=== PATIENT | female | born 1995 | race Caucasian/White ===

== ENCOUNTER 2020-10-29 18:00 | Emergency (ER) | payer OTHER ==
[~2020-10-29] VITALS: Ht 160 cm; Wt 54.8 kg
[2020-10-29] MEDS ORDERED: ERYTHROMYCIN OPHTH OINT OD STA (20:46)
[2020-10-29 20:53] VITALS: BP 117/80
== END 2020-10-29 21:01 | disposition home or self-care (01) ==
LOC: M ED 18:00
DX: H10.31 Unspecified acute conjunctivitis, right eye (principal)

== ENCOUNTER 2020-11-24 09:33 | Emergency (ER) | payer BC, OTHER ==
[~2020-11-24] VITALS: Ht 160 cm; Wt 54.6 kg
[2020-11-24 11:08] VITALS: BP 111/58
== END 2020-11-24 12:19 | disposition home or self-care (01) ==
LOC: M ED 09:33
DX: T70.29XA Other effects of high altitude, initial encounter (principal); J06.9 Acute upper respiratory infection, unspecified; F17.290 Nicotine dependence, other tobacco product, uncomplicated; Z98.890 Other specified postprocedural states

== ENCOUNTER 2020-12-01 12:19 | Emergency (ER) | payer BC ==
[~2020-12-01] VITALS: Ht 160 cm; Wt 54.3 kg
[2020-12-01 14:58] VITALS: BP 105/67
== END 2020-12-01 15:19 | disposition home or self-care (01) ==
LOC: M ED 12:19
DX: Z11.52 Encounter for screening for COVID-19 (principal); J06.9 Acute upper respiratory infection, unspecified

== ENCOUNTER 2022-02-22 19:51 | Emergency (ER) | payer BC ==
[~2022-02-22] VITALS: Ht 160 cm; Wt 63.6 kg
[2022-02-22] MEDS ORDERED: LIDOCAINE 1% SDV 5ML VIAL DILUENT ONE (22:10)
[2022-02-22] MEDS ORDERED: DOXYCYCLINE HYCLATE 100MG TABLET PO ONE (22:10)
[2022-02-22] MEDS ORDERED: cefTRIAXone 500MG VIAL (J0696 PER 250MG) IM ONE (22:10)
[2022-02-22] MEDS ORDERED: METR-265 PO (22:25)
[2022-02-22] MEDS ORDERED: MACR100C43 PO (22:25)
[2022-02-22] MEDS ORDERED: metroNIDAZOLE (FLAGYL) 500MG TABLET PO ONE (22:25)
[2022-02-22 22:33] VITALS: BP 131/81
[2022-02-22 23:41] LABS: GC DNA AMPLIFICATION POSITIVE (NEGATIVE)
[2022-02-23] MEDS ORDERED: DOXY-443 PO (02:47)
== END 2022-02-22 22:39 | disposition home or self-care (01) ==
LOC: M ED 19:51
DX: A54.03 Gonococcal cervicitis, unspecified (principal); A56.09 Other chlamydial infection of lower genitourinary tract; N39.0 Urinary tract infection, site not specified; N76.0 Acute vaginitis; F17.290 Nicotine dependence, other tobacco product, uncomplicated
CPT/HCPCS: 36415; 81000; 84702; 87086; 87210; 87661; 87810; 87850; 96372; 99283; J0696

== ENCOUNTER → 2022-05-21 | Outpatient (CLI) | payer BC ==
[~2022-05-21] MED LIST: DOXY-443 PO; MACR100C43 PO; METR-265 PO
[2022-05-21 14:34] LABS: HEPATITIS B SURFACE ANTIGEN NEGATIVE (NEGATIVE)
[2022-05-21 14:47] LABS: HIV 1&2 SCREEN CENTAUR NEGATIVE (NEGATIVE)
[2022-05-21 14:55] LABS: HEPATITIS B CORE ANTIBODY IGM NEGATIVE (NEGATIVE)
[2022-05-24 19:07] LABS: HSV-1 DNA Negative (Negative); HSV-2 DNA Negative (Negative)
== END ==
LOC: M PLALAB 09:47
PROVIDERS: ATTEND Nurse Practitioner Family
DX: Z11.3 Encounter for screening for infections with a predominantly sexual mode of transmission (principal); R10.2 Pelvic and perineal pain; R93.0 Abnormal findings on diagnostic imaging of skull and head, not elsewhere classified; Z12.4 Encounter for screening for malignant neoplasm of cervix; N93.0 Postcoital and contact bleeding
CPT/HCPCS: 36415; 86705; 86780; 86803; 87088; 87186; 87340; 87389; 87529; G0123

== ENCOUNTER → 2022-05-21 | Outpatient (REF) | payer BC | LOC: M PLALAB 09:35 | PROVIDERS: ATTEND Nurse Practitioner Family | DX: R10.2 Pelvic and perineal pain (principal); Z11.3 Encounter for screening for infections with a predominantly sexual mode of transmission; N93.0 Postcoital and contact bleeding; Z53.8 Procedure and treatment not carried out for other reasons ==

== ENCOUNTER → 2022-06-12 | Outpatient (CLI) | payer BC | LOC: M WHC 12:24 | PROVIDERS: ATTEND Nurse Practitioner Family | DX: R10.2 Pelvic and perineal pain (principal) ==

== ENCOUNTER 2022-08-08 11:26 | Emergency (ER) | payer BC ==
[~2022-08-08] VITALS: Ht 160 cm; Wt 61.6 kg
[2022-08-08] MEDS ORDERED: CETI10TA4 PO (14:07)
[2022-08-08] MEDS ORDERED: BENZ200C70 PO (14:07)
[2022-08-08] MEDS ORDERED: NAPR-837 PO (14:07)
[2022-08-08 14:13] VITALS: BP 113/70
== END 2022-08-08 14:18 | disposition home or self-care (01) ==
LOC: M ED 11:26
DX: M94.0 Chondrocostal junction syndrome [Tietze] (principal); R07.89 Other chest pain; R00.1 Bradycardia, unspecified; F17.210 Nicotine dependence, cigarettes, uncomplicated

== ENCOUNTER 2022-09-11 09:18 | Emergency (ER) | payer BC ==
[~2022-09-11] VITALS: Ht 160 cm; Wt 60.2 kg
[~2022-09-11 09:18] MED LIST changes: +BENZ200C70 PO; +CETI10TA4 PO; +NAPR-837 PO
[2022-09-11 10:33] LABS: BASO % 0.8 % (0.0-1.0); EOS # 0.1 10^3/uL (0.0-0.5); EOS % 3.4 % (0.0-3.0); HEMATOCRIT 36.5 % (36.0-47.0); HEMOGLOBIN 12.5 g/dl (12.0-15.5); LYMPH # 1.2 10^3/uL (1.5-5.0); LYMPH % 33.2 % (24.0-44.0); MEAN CORPUSCULAR HEMOGLOBIN 31.7 pg (27.0-33.0); MEAN CORPUSCULAR HGB CONC 34.2 g/dl (32.0-36.5); MEAN CORPUSCULAR VOLUME 92.6 fl (80.0-96.0); MONO # 0.3 10^3/uL (0.0-0.8); MONO % 9.6 % (2.0-8.0); NEUTROPHILS # 1.9 10^3/uL (1.5-8.5); NEUTROPHILS % 52.7 % (36.0-66.0); PLATELET COUNT, AUTOMATED 199 10^3/uL (150-450); RED BLOOD COUNT 3.94 10^6/uL (4.00-5.40); WHITE BLOOD COUNT 3.6 10^3/uL (4.0-10.0)
[2022-09-11 10:55] LABS: LIPASE 37 U/L (12-53)
[2022-09-11 10:58] LABS: ALBUMIN 3.8 G/DL (3.2-5.2); ALKALINE PHOSPHATASE 39 U/L (46-116); ALT/SGPT 22 U/L (7.0-40); AST/SGOT 22 U/L (<34); BILIRUBIN,DIRECT 0.4 MG/DL (<0.4); BLOOD UREA NITROGEN 11 MG/DL (9-23); CALCIUM LEVEL 8.2 MG/DL (8.5-10.1); CARBON DIOXIDE LEVEL 28 MMOL/L (20-31); CHLORIDE LEVEL 109 MMOL/L (98-107); GLOMERULAR FILTRATION RATE > 60.0 (>60); GLUCOSE, FASTING 82 MG/DL (60-100); HCG, SERUM QUALITATIVE NEGATIVE (NEGATIVE); SODIUM LEVEL 143 MMOL/L (136-145); TOTAL PROTEIN 6.4 G/DL (5.7-8.2)
[2022-09-11] MEDS ORDERED: KETOROLAC 30 MG/ML 1ML VIAL IV ONE (11:25)
[2022-09-11] MEDS ORDERED: NS 1,000 ML IV ONE (11:25)
[2022-09-11] MEDS ORDERED: KETO10TAB PO (12:46)
[2022-09-11 12:51] VITALS: BP 108/56
[2022-09-11 14:36] LABS: GC DNA AMPLIFICATION NEGATIVE (NEGATIVE)
== END 2022-09-11 13:02 | disposition home or self-care (01) ==
LOC: M ED 09:18
DX: R10.84 Generalized abdominal pain (principal); Z79.899 Other long term (current) drug therapy
CPT/HCPCS: 74018; 80048; 80076; 81001; 83690; 84703; 85025; 87086; 87661; 87810; 87850; 99284; J1885

== ENCOUNTER → 2022-09-18 | Outpatient (REF) | payer BC ==
[~2022-09-18] MED LIST changes: +KETO10TAB PO
== END ==
LOC: M SFHCWAGY 13:05
PROVIDERS: ATTEND Nurse Practitioner Family
DX: R10.2 Pelvic and perineal pain (principal)

== ENCOUNTER → 2022-10-01 | Outpatient (CLI) | payer BC, MEDICAID, SELFPAY | LOC: M RAD 13:39 | PROVIDERS: ATTEND Nurse Practitioner Family | DX: R10.2 Pelvic and perineal pain (principal) ==

== ENCOUNTER 2022-12-23 17:04 | Emergency (ER) | payer BC, MEDICAID ==
[~2022-12-23] VITALS: Ht 160 cm; Wt 62.7 kg
[2022-12-23] MEDS ORDERED: ONDANSETRON 4MG 2ML VIAL IV ONE (18:00)
[2022-12-23] MEDS ORDERED: KETOROLAC 30 MG/ML 1ML VIAL IV ONE (18:00)
[2022-12-23] MEDS ORDERED: NS 1,000 ML IV ONE ×2 (18:00→18:45)
[2022-12-23 18:03] LABS: BASO % 0.2 % (0.0-1.0); HEMATOCRIT 38.7 % (36.0-47.0); HEMOGLOBIN 13.4 g/dl (12.0-15.5); LYMPH % 8.2 % (24.0-44.0); MEAN CORPUSCULAR HEMOGLOBIN 31.2 pg (27.0-33.0); MEAN CORPUSCULAR HGB CONC 34.6 g/dl (32.0-36.5); MEAN CORPUSCULAR VOLUME 90.2 fl (80.0-96.0); MONO # 1.2 10^3/uL (0.0-0.8); MONO % 9.7 % (2.0-8.0); NEUTROPHILS # 10.3 10^3/uL (1.5-8.5); NEUTROPHILS % 81.3 % (36.0-66.0); PLATELET COUNT, AUTOMATED 166 10^3/uL (150-450); RED BLOOD COUNT 4.29 10^6/uL (4.00-5.40); WHITE BLOOD COUNT 12.6 10^3/uL (4.0-10.0)
[2022-12-23 18:32] LABS: ALBUMIN 3.5 G/DL (3.2-5.2); BILIRUBIN,DIRECT 0.5 MG/DL (<0.4); BILIRUBIN,TOTAL 1.3 MG/DL (0.3-1.2); TOTAL PROTEIN 7.2 G/DL (5.7-8.2)
[2022-12-23 18:38] LABS: RSV AMPLIFICATION NEGATIVE (NEGATIVE)
[2022-12-23] MEDS ORDERED: ISOVUE-370 76% 100ML VIAL As Ordered ONE (18:47)
[2022-12-23 19:22] VITALS: TEMP 99.8
[2022-12-23] MEDS ORDERED: ACETAMINOPHEN 500 MG TAB PO ONE (19:25)
[2022-12-23] MEDS ORDERED: cefTRIAXone SOD 1 GM in D5W MINI-BAG PLUS 50 ML IV ONE (20:00)
[2022-12-23] MEDS ORDERED: SULF1TAB23 PO (21:00)
[2022-12-23 21:15] VITALS: BP 124/67
[2022-12-23 21:19] VITALS: O2SAT 97
== END 2022-12-23 21:26 | disposition home or self-care (01) ==
LOC: M ED 17:04
DX: N10 Acute pyelonephritis (principal); R50.9 Fever, unspecified; Z86.73 Personal history of transient ischemic attack (TIA), and cerebral infarction without residual deficits; Z79.899 Other long term (current) drug therapy
CPT/HCPCS: 36415; 74177; 80047; 80076; 81001; 83605; 83690; 84702; 85025; 87088; 87186; 87631; 93005; 93041; 94760; 96361; 96365; 96375; 99285; J0696; J1885; J2405; Q9967

== ENCOUNTER → 2023-01-17 | Outpatient (CLI) | payer BC, MEDICAID ==
[~2023-01-17] MED LIST changes: +SULF1TAB23 PO
[2023-01-17 12:41] LABS: GC DNA AMPLIFICATION NEGATIVE (NEGATIVE)
[2023-01-17 16:16] LABS: HIV 1&2 SCREEN NEGATIVE (NEGATIVE)
[2023-01-17 16:24] LABS: HEPATITIS B CORE ANTIBODY IGM NEGATIVE (NEGATIVE); HEPATITIS C VIRUS ABY INDEX 0.06 INDEX (<0.8)
== END ==
LOC: M PLALAB 08:48
PROVIDERS: ATTEND Nurse Practitioner Family
DX: Z11.3 Encounter for screening for infections with a predominantly sexual mode of transmission (principal); R35.0 Frequency of micturition

== ENCOUNTER 2023-04-16 11:51 | Emergency (ER) | payer MEDICAID, OTHER ==
[~2023-04-16] VITALS: Ht 160 cm; Wt 58.4 kg
[2023-04-16] MEDS ORDERED: NAPR220C14 PO (11:58)
[2023-04-16] MEDS ORDERED: KETOROLAC 60MG 2ML VIAL IM ONE (13:55)
[2023-04-16] MEDS ORDERED: HYDR-3713 PO (14:07)
[2023-04-16 14:16] VITALS: BP 110/65; TEMP 98; O2SAT 100
== END 2023-04-16 14:21 | disposition home or self-care (01) ==
LOC: M ED 11:51
DX: K03.81 Cracked tooth (principal); K08.89 Other specified disorders of teeth and supporting structures
CPT/HCPCS: 96372; 99283; J1885

== ENCOUNTER 2023-05-08 21:11 | Observation (INO) | payer OTHER ==
[~2023-05-08] VITALS: Ht 160 cm; Wt 57.8 kg
[~2023-05-08 21:11] MED LIST changes: +HYDR-3713 PO; +NAPR220C14 PO
[2023-05-08] MEDS ORDERED: PERI12LIQ PO (21:15)
[2023-05-08] MEDS ORDERED: ACETAMINOPHEN 325 MG TAB PO ONE (21:35)
[2023-05-08] MEDS ORDERED: NS 1,000 ML IV ONE (21:35)
[2023-05-08] MEDS ORDERED: ONDANSETRON 4MG 2ML VIAL IV ONE (21:35)
[2023-05-08 21:58] LABS: BASO % 0.3 % (0.0-1.0); EOS % 0.1 % (0.0-3.0); HEMATOCRIT 36.9 % (36.0-47.0); LYMPH # 0.9 10^3/uL (1.5-5.0); LYMPH % 8.1 % (24.0-44.0); MEAN CORPUSCULAR HEMOGLOBIN 32.2 pg (27.0-33.0); MEAN CORPUSCULAR HGB CONC 35.2 g/dl (32.0-36.5); MEAN CORPUSCULAR VOLUME 91.3 fl (80.0-96.0); MONO # 0.5 10^3/uL (0.0-0.8); MONO % 4.3 % (2.0-8.0); NEUTROPHILS # 9.6 10^3/uL (1.5-8.5); NEUTROPHILS % 86.7 % (36.0-66.0); PLATELET COUNT, AUTOMATED 223 10^3/uL (150-450); RED BLOOD COUNT 4.04 10^6/uL (4.00-5.40); WHITE BLOOD COUNT 11.1 10^3/uL (4.0-10.0)
[2023-05-08 22:23] LABS: HCG, SERUM QUALITATIVE NEGATIVE (NEGATIVE)
[2023-05-08 22:34] LABS: ALBUMIN 3.8 G/DL (3.2-5.2); ALKALINE PHOSPHATASE 49 U/L (46-116); ALT/SGPT 49 U/L (7.0-40); AST/SGOT 44 U/L (<34); BILIRUBIN,DIRECT 0.6 MG/DL (<0.4); BILIRUBIN,TOTAL 1.3 MG/DL (0.3-1.2); BLOOD UREA NITROGEN 15 MG/DL (9-23); CALCIUM LEVEL 8.2 MG/DL (8.5-10.1); CARBON DIOXIDE LEVEL 25 MMOL/L (20-31); CHLORIDE LEVEL 109 MMOL/L (98-107); CREATININE FOR GFR 0.72 MG/DL (0.55-1.30); GLOMERULAR FILTRATION RATE > 60.0 (>60); GLUCOSE, FASTING 108 MG/DL (60-100); POTASSIUM SERUM 3.7 MMOL/L (3.5-5.1); SODIUM LEVEL 139 MMOL/L (136-145); TOTAL PROTEIN 7.1 G/DL (5.7-8.2)
[2023-05-08 22:53] LABS: APPEARANCE, URINE CLEAR (CLEAR); BACTERIA, URINE AUTO NEGATIVE (NEGATIVE); BILIRUBIN, URINE AUTO NEGATIVE (NEGATIVE); BLOOD, URINE BLOOD NEGATIVE (NEGATIVE); COLOR, URINE YELLOW (YELLOW); GLUCOSE, URINE (UA) AUTO NEGATIVE (NEGATIVE); KETONE, URINE AUTO NEGATIVE (NEGATIVE); LEUKOCYTE ESTERASE, URINE AUTO NEGATIVE (NEGATIVE); MUCUS, URINE SMALL (NEGATIVE); NITRITE, URINE AUTO NEGATIVE (NEGATIVE); PROTEIN, URINE AUTO NEGATIVE (NEGATIVE); RBC, URINE AUTO 0 /HPF (0-3); SPECIFIC GRAVITY URINE AUTO 1.006 (1.002-1.035); SQUAMOUS EPITHELIAL CELL UR AU 1 /HPF (0-6); WBC, URINE AUTO 1 /HPF (0-3)
[2023-05-08] MEDS ORDERED: ISOVUE-370 76% 100ML VIAL As Ordered ONE (23:10)
[2023-05-09] VITALS (10 sets, daily range): BP systolic 90–106; BP diastolic 48–62; TEMP 97.2–97.9; O2SAT 95–99
[2023-05-09] MEDS ORDERED: PIPERACILLIN/TAZOBACTAM SOD 3.375 GM in D5W MINI-BAG PLUS 50 ML IV ONE ×2
[2023-05-09] MEDS ORDERED: ALEV220T22 PO (00:35)
[2023-05-09] MEDS ORDERED: HOME MED LIST COMPLETE! XX SCH (00:40)
[2023-05-09] MEDS ORDERED: MORPHINE 4 MG/ML 1ML VIAL IV PRN (00:45)
[2023-05-09] MEDS ORDERED: PERCOCET 5MG/325MG TAB PO PRN (00:45)
[2023-05-09] MEDS ORDERED: ONDANSETRON 4MG 2ML VIAL IV PRN ×2 (00:45→16:30)
[2023-05-09] MEDS: LR 1,000 ML IV SCH ×4 (01:36→17:28)
[2023-05-09] MEDS: PERCOCET 5MG/325MG TAB PO PRN ×2 (04:50→17:55)
[2023-05-09] MEDS: PIPERACILLIN/TAZOBACTAM SOD 3.375 GM in D5W MINI-BAG PLUS 50 ML IV SCH ×2 (05:53→11:49)
[2023-05-09] MEDS ORDERED: LIDOCAINE 2% 100MG/5ML SDV (FOR ANES.) As Ordered ONE (13:09)
[2023-05-09] MEDS ORDERED: propofoL 200 MG/20 ML VIAL As Ordered ONE ×2 (13:09→16:15)
[2023-05-09] MEDS ORDERED: SEVOFLURANE INHAL SOLN 250 ML BTL As Ordered ONE (13:09)
[2023-05-09] MEDS ORDERED: ONDANSETRON 4MG 2ML VIAL As Ordered ONE (13:09)
[2023-05-09] MEDS ORDERED: ROCURONIUM BROMIDE 50MG/5ML VIAL As Ordered ONE ×2 (13:09→16:16)
[2023-05-09] MEDS ORDERED: fentaNYL 250 MCG/5 ML INJECTION As Ordered ONE (13:10)
[2023-05-09] MEDS ORDERED: MIDAZOLAM INJ 2MG/2ML VIAL As Ordered ONE (13:10)
[2023-05-09] MEDS ORDERED: KETOROLAC 60MG 2ML VIAL As Ordered ONE (13:11)
[2023-05-09] MEDS ORDERED: SUGAMMADEX SODIUM 500 MG/5 ML VIAL (BRIDION) As Ordered ONE (13:21)
[2023-05-09] MEDS ORDERED: LIDOCAINE 1% SDV 30ML VIAL As Ordered ONE (15:04)
[2023-05-09] MEDS ORDERED: oxyCODONE 5MG TAB PO PRN (16:30)
[2023-05-09] MEDS ORDERED: HYDROMORPHONE HCL 0.5 MG/ 0.5 ML SYRINGE IV PRN (16:30)
[2023-05-09] MEDS ORDERED: fentaNYL 100 MCG/2 ML INJECTION IV PRN (16:30)
[2023-05-09] MEDS ORDERED: LR 1,000 ML IV SCH (16:30)
[2023-05-09] MEDS ORDERED: PERCOCET PO (16:56)
[2023-05-10 02:00] VITALS: BP 102/57; TEMP 97.5; O2SAT 97
[2023-05-10 05:49] VITALS: BP 95/60; TEMP 97.5; O2SAT 96
== END 2023-05-10 09:10 | disposition home or self-care (01) ==
LOC: M ED 21:11 → M SDC 05-09 00:43 → M MSPAV 05-09 00:44
PROVIDERS: ADMIT Surgery; ATTEND Surgery
DX: K35.80 Unspecified acute appendicitis (principal); F17.200 Nicotine dependence, unspecified, uncomplicated
CPT/HCPCS: 44970; 71045; 74177; 80048; 80076; 81001; 83605; 84703; 85025; 87040; 87086; 87486; 87581; 87633; 87798; 88304; 93041; 94760; 96361; 96365; 96366; 96375; 99285; J0665; J1100; J1885; J2250; J2405; J2543; J3010; Q9967

== ENCOUNTER → 2023-05-16 | Outpatient (REF) | payer OTHER, BC, MEDICAID ==
[~2023-05-16] MED LIST changes: +ACET32TAB PO; +ALEV220T22 PO; +CRAN400C PO; +PERCOCET PO; +PERI12LIQ PO
[2023-05-16 19:46] LABS: Trichomonas vaginalis (AMP) NOT DETECTED (NEGATIVE)
[2023-05-16 20:09] LABS: GC DNA AMPLIFICATION NEGATIVE (NEGATIVE)
== END ==
LOC: M SFHCWAGY 17:21
PROVIDERS: ATTEND Nurse Practitioner Family
DX: Z11.3 Encounter for screening for infections with a predominantly sexual mode of transmission (principal)

== ENCOUNTER 2023-07-30 09:57 | Emergency (ER) | payer BC, MEDICAID, OTHER ==
[~2023-07-30] VITALS: Ht 160 cm; Wt 57.2 kg
[~2023-07-30 09:57] MED LIST changes: -CRAN400C PO
[2023-07-30] MEDS ORDERED: CRAN400C PO (10:24)
[2023-07-30 10:49] LABS: BASO % 0.6 % (0.0-1.0); EOS % 0.7 % (0.0-3.0); HEMATOCRIT 41.3 % (36.0-47.0); HEMOGLOBIN 13.9 g/dl (12.0-15.5); LYMPH # 1.5 10^3/uL (1.5-5.0); LYMPH % 27.2 % (24.0-44.0); MEAN CORPUSCULAR HEMOGLOBIN 31.6 pg (27.0-33.0); MEAN CORPUSCULAR HGB CONC 33.7 g/dl (32.0-36.5); MEAN CORPUSCULAR VOLUME 93.9 fl (80.0-96.0); MONO # 0.4 10^3/uL (0.0-0.8); MONO % 7.2 % (2.0-8.0); NEUTROPHILS # 3.5 10^3/uL (1.5-8.5); NEUTROPHILS % 64.1 % (36.0-66.0); PLATELET COUNT, AUTOMATED 199 10^3/uL (150-450); WHITE BLOOD COUNT 5.4 10^3/uL (4.0-10.0)
[2023-07-30 11:17] LABS: LIPASE 36 U/L (12-53)
[2023-07-30 11:18] LABS: HCG, SERUM QUALITATIVE NEGATIVE (NEGATIVE)
[2023-07-30 11:19] LABS: ALBUMIN 3.6 G/DL (3.2-5.2); ALKALINE PHOSPHATASE 41 U/L (46-116); ALT/SGPT 24 U/L (7.0-40); AST/SGOT 12 U/L (<34); BILIRUBIN,DIRECT 0.5 MG/DL (<0.4); BILIRUBIN,TOTAL 1.3 MG/DL (0.3-1.2); BLOOD UREA NITROGEN 11 MG/DL (9-23); CALCIUM LEVEL 8.6 MG/DL (8.5-10.1); CARBON DIOXIDE LEVEL 28 MMOL/L (20-31); CHLORIDE LEVEL 108 MMOL/L (98-107); CREATININE FOR GFR 0.72 MG/DL (0.55-1.30); GLOMERULAR FILTRATION RATE > 60.0 (>60); GLUCOSE, FASTING 98 MG/DL (60-100); SODIUM LEVEL 141 MMOL/L (136-145); TOTAL PROTEIN 7.1 G/DL (5.7-8.2)
[2023-07-30] MEDS: IBUPROFEN 600MG TAB PO ONE (11:50)
[2023-07-30 13:36] VITALS: BP 93/59; TEMP 98.3; O2SAT 98
== END 2023-07-30 13:35 | disposition home or self-care (01) ==
LOC: M ED 09:57
DX: R10.11 Right upper quadrant pain (principal); Z87.448 Personal history of other diseases of urinary system; F17.290 Nicotine dependence, other tobacco product, uncomplicated

== ENCOUNTER → 2023-10-08 | Outpatient (REF) | payer BC, MEDICAID ==
[~2023-10-08] MED LIST changes: +CRANBERRY400 MG PO; +DOXY-323 PO; -DOXY-443 PO
== END ==
LOC: M SFHCWAGY 14:58
PROVIDERS: ATTEND Nurse Practitioner Family
DX: N73.9 Female pelvic inflammatory disease, unspecified (principal)

== ENCOUNTER → 2023-10-30 | Outpatient (REF) | payer BC, MEDICAID ==
[2023-10-30 20:39] LABS: Trichomonas vaginalis (AMP) NOT DETECTED (NEGATIVE)
[2023-10-30 21:02] LABS: GC DNA AMPLIFICATION NEGATIVE (NEGATIVE)
== END ==
LOC: M SFHCWAGY 16:53
PROVIDERS: ATTEND Nurse Practitioner Family
DX: Z11.3 Encounter for screening for infections with a predominantly sexual mode of transmission (principal)

== ENCOUNTER → 2024-01-06 | Outpatient (CLI) | payer BC | LOC: M RAD 11:18 | PROVIDERS: ATTEND Physician Assistant Medical | DX: M79.641 Pain in right hand (principal) ==

== ENCOUNTER → 2024-01-14 | Outpatient (CLI) | payer BC ==
[~2024-01-14] MED LIST changes: -DOXY-323 PO; +DOXY-441 PO
== END ==
LOC: M RAD 10:42
PROVIDERS: ATTEND Physician Assistant Medical
DX: M79.641 Pain in right hand (principal)

== ENCOUNTER 2024-02-27 08:45 | Emergency (ER) | payer MEDICAID ==
[~2024-02-27] VITALS: Ht 160 cm; Wt 61.1 kg
[2024-02-27] MEDS ORDERED: LO LTAB (08:55)
[2024-02-27 09:40] LABS: BASO % 0.8 % (0.0-1.0); EOS # 0.1 10^3/uL (0.0-0.5); EOS % 1.7 % (0.0-3.0); HEMATOCRIT 43.9 % (36.0-47.0); HEMOGLOBIN 15.2 g/dl (12.0-15.5); LYMPH # 1.7 10^3/uL (1.5-5.0); LYMPH % 48.2 % (24.0-44.0); MEAN CORPUSCULAR HEMOGLOBIN 32.5 pg (27.0-33.0); MEAN CORPUSCULAR HGB CONC 34.6 g/dl (32.0-36.5); MONO # 0.3 10^3/uL (0.0-0.8); MONO % 7.9 % (2.0-8.0); NEUTROPHILS # 1.5 10^3/uL (1.5-8.5); NEUTROPHILS % 41.1 % (36.0-66.0); PLATELET COUNT, AUTOMATED 253 10^3/uL (150-450); RED BLOOD COUNT 4.67 10^6/uL (4.00-5.40); WHITE BLOOD COUNT 3.5 10^3/uL (4.0-10.0)
[2024-02-27 09:45] LABS: APPEARANCE, URINE HAZY (CLEAR); BACTERIA, URINE AUTO NEGATIVE (NEGATIVE); BILIRUBIN, URINE AUTO NEGATIVE (NEGATIVE); BLOOD, URINE BLOOD NEGATIVE (NEGATIVE); COLOR, URINE YELLOW (YELLOW); GLUCOSE, URINE (UA) AUTO NEGATIVE (NEGATIVE); KETONE, URINE AUTO NEGATIVE (NEGATIVE); LEUKOCYTE ESTERASE, URINE AUTO NEGATIVE (NEGATIVE); MUCUS, URINE SMALL (NEGATIVE); NITRITE, URINE AUTO NEGATIVE (NEGATIVE); PROTEIN, URINE AUTO NEGATIVE (NEGATIVE); RBC, URINE AUTO 0 /HPF (0-3); SPECIFIC GRAVITY URINE AUTO 1.017 (1.002-1.035); SQUAMOUS EPITHELIAL CELL UR AU 2 /HPF (0-6); UROBILINOGEN, URINE AUTO 0.2 mg/dL (0.0-2.0); WBC, URINE AUTO 1 /HPF (0-3)
[2024-02-27 10:01] LABS: LIPASE 50 U/L (12-53)
[2024-02-27 10:03] LABS: ALBUMIN 3.6 G/DL (3.2-5.2); ALKALINE PHOSPHATASE 38 U/L (35-104); ALT/SGPT 17 U/L (7.0-40); AST/SGOT 12 U/L (<34); BILIRUBIN,DIRECT 0.3 MG/DL (<0.4); BILIRUBIN,TOTAL 0.8 MG/DL (0.3-1.2); TOTAL PROTEIN 7.4 G/DL (5.7-8.2)
[2024-02-27 10:27] LABS: URINE PREG TEST NEGATIVE (NEGATIVE)
[2024-02-27 12:10] LABS: BLOOD UREA NITROGEN 14 MG/DL (9-23); CALCIUM LEVEL 9.3 MG/DL (8.5-10.1); CARBON DIOXIDE LEVEL 26 MMOL/L (20-31); CHLORIDE LEVEL 109 MMOL/L (98-107); CREATININE FOR GFR 0.91 MG/DL (0.55-1.30); GLOMERULAR FILTRATION RATE > 60.0 (>60); GLUCOSE, FASTING 86 MG/DL (60-100); SODIUM LEVEL 142 MMOL/L (136-145)
[2024-02-27] MEDS ORDERED: DICY20TA20 PO (14:04)
[2024-02-27] MEDS ORDERED: ONDA-282 PO (14:04)
[2024-02-27 14:15] VITALS: BP 115/65; TEMP 98.1; O2SAT 98
== END 2024-02-27 14:17 | disposition home or self-care (01) ==
LOC: M ED 08:45
DX: R10.32 Left lower quadrant pain (principal); R10.2 Pelvic and perineal pain; Z79.899 Other long term (current) drug therapy

== ENCOUNTER → 2024-04-02 | Outpatient (CLI) | payer MEDICAID, OTHER ==
[~2024-04-02] MED LIST changes: +DICY20TA20 PO; +LO LTAB; +ONDA-282 PO
[2024-04-02 16:46] LABS: Trichomonas vaginalis (AMP) NOT DETECTED (NEGATIVE)
[2024-04-02 17:09] LABS: GC DNA AMPLIFICATION NEGATIVE (NEGATIVE)
== END ==
LOC: M PLALAB 12:43
PROVIDERS: ATTEND Nurse Practitioner Family
DX: R10.2 Pelvic and perineal pain (principal)

== ENCOUNTER → 2024-07-02 | Outpatient (REF) | payer OTHER, MEDICAID ==
[2024-07-03 12:47] LABS: Trichomonas vaginalis (AMP) NOT DETECTED (NEGATIVE)
[2024-07-03 13:11] LABS: GC DNA AMPLIFICATION NEGATIVE (NEGATIVE)
== END ==
LOC: M SFHCWAGY 09:47
PROVIDERS: ATTEND Nurse Practitioner Family
DX: Z11.3 Encounter for screening for infections with a predominantly sexual mode of transmission (principal)

== ENCOUNTER 2024-07-04 17:43 | Emergency (ER) | payer OTHER, MEDICAID ==
[~2024-07-04] VITALS: Ht 160 cm; Wt 66.3 kg
[2024-07-04 18:49] LABS: BASO % 0.3 % (0.0-1.0); EOS % 0.4 % (0.0-3.0); HEMATOCRIT 45.6 % (36.0-47.0); HEMOGLOBIN 15.6 g/dl (12.0-15.5); LYMPH # 1.6 10^3/uL (1.5-5.0); LYMPH % 14.1 % (24.0-44.0); MEAN CORPUSCULAR HEMOGLOBIN 31.6 pg (27.0-33.0); MEAN CORPUSCULAR HGB CONC 34.2 g/dl (32.0-36.5); MEAN CORPUSCULAR VOLUME 92.3 fl (80.0-96.0); MONO # 0.5 10^3/uL (0.0-0.8); MONO % 4.2 % (2.0-8.0); NEUTROPHILS # 9.2 10^3/uL (1.5-8.5); NEUTROPHILS % 80.6 % (36.0-66.0); PLATELET COUNT, AUTOMATED 258 10^3/uL (150-450); RED BLOOD COUNT 4.94 10^6/uL (4.00-5.40); WHITE BLOOD COUNT 11.4 10^3/uL (4.0-10.0)
[2024-07-04 19:15] LABS: LIPASE 30 U/L (12-53)
[2024-07-04 19:17] LABS: ALBUMIN 3.9 G/DL (3.2-5.2); ALKALINE PHOSPHATASE 56 U/L (35-104); ALT/SGPT 58 U/L (7.0-40); AST/SGOT 27 U/L (<34); BILIRUBIN,DIRECT 0.4 MG/DL (<0.4); BILIRUBIN,TOTAL 1.5 MG/DL (0.3-1.2); BLOOD UREA NITROGEN 12 MG/DL (9-23); CALCIUM LEVEL 9.4 MG/DL (8.5-10.1); CARBON DIOXIDE LEVEL 30 MMOL/L (20-31); CHLORIDE LEVEL 106 MMOL/L (98-107); CREATININE FOR GFR 0.79 MG/DL (0.55-1.30); GLOMERULAR FILTRATION RATE > 60.0 (>60); GLUCOSE, FASTING 87 MG/DL (60-100); POTASSIUM SERUM 3.9 MMOL/L (3.5-5.1); SODIUM LEVEL 143 MMOL/L (136-145); TOTAL PROTEIN 7.6 G/DL (5.7-8.2)
[2024-07-04 19:20] LABS: HCG, SERUM QUALITATIVE NEGATIVE (NEGATIVE)
[2024-07-04 19:25] LABS: KETONE, URINE AUTO RFX NEGATIVE (NEGATIVE); LEUKOCYTE ESTERASE UR AUTO RFX NEGATIVE (NEGATIVE); MUCUS, URINE RFX SMALL (NEGATIVE); NITRITE, URINE AUTO RFX NEGATIVE (NEGATIVE); RBC, URINE AUTO RFX 0 /HPF (0-3); SQUAM EPITHELIAL CELL UR AURFX 0 /HPF (0-6); WBC, URINE AUTO RFX 2 /HPF (0-3)
[2024-07-04] MEDS: NS (Normal Saline) 0.9% 1,000 ML IV ONE (23:25)
[2024-07-04] MEDS: KETOROLAC 30 MG/ML 1ML VIAL IV ONE (23:25)
[2024-07-04] MEDS ORDERED: ISOVUE-370 76% 100ML VIAL As Ordered ONE (23:30)
[2024-07-05 02:45] LABS: Trichomonas vaginalis (AMP) NOT DETECTED (NEGATIVE)
[2024-07-05] MEDS: ACETAMINOPHEN *IV* 1,000 MG in IV 1 EA IV ONE (03:03)
[2024-07-05 03:09] LABS: GC DNA AMPLIFICATION NEGATIVE (NEGATIVE)
[2024-07-05] MEDS ORDERED: ONDA-282 PO (05:01)
[2024-07-05] MEDS ORDERED: IBUP-1022 PO (05:01)
[2024-07-05 05:34] VITALS: BP 101/60; TEMP 97.3; O2SAT 98
== END 2024-07-05 05:37 | disposition home or self-care (01) ==
LOC: M ED 17:43
DX: N83.292 Other ovarian cyst, left side (principal); F17.290 Nicotine dependence, other tobacco product, uncomplicated; F10.10 Alcohol abuse, uncomplicated; Z79.1 Long term (current) use of non-steroidal anti-inflammatories (NSAID); Z79.899 Other long term (current) drug therapy
CPT/HCPCS: 36415; 74177; 76856; 80048; 80076; 81001; 83690; 84703; 85025; 87661; 87810; 87850; 93976; 96374; 96375; 99284; J0131; J1885; Q9967

== ENCOUNTER 2024-08-04 11:18 | Emergency (ER) | payer OTHER ==
[~2024-08-04] VITALS: Ht 160 cm; Wt 66.8 kg
[~2024-08-04 11:18] MED LIST changes: +IBUP-1022 PO
[2024-08-04 13:09] VITALS: BP 105/61; O2SAT 96
[2024-08-04 13:19] VITALS: TEMP 99.2
== END 2024-08-04 13:23 | disposition home or self-care (01) ==
LOC: M ED 11:18
DX: J09.X9 Influenza due to identified novel influenza A virus with other manifestations (principal); F17.290 Nicotine dependence, other tobacco product, uncomplicated

== ENCOUNTER 2024-08-31 15:57 | Emergency (ER) | payer OTHER ==
[~2024-08-31] VITALS: Ht 152.4 cm; Wt 66.9 kg
[2024-08-31] MEDS ORDERED: LO LTAB (16:14)
[2024-08-31 17:20] LABS: RSV AMPLIFICATION NEGATIVE (NEGATIVE)
[2024-08-31 22:05] VITALS: TEMP 98.6
[2024-08-31] MEDS ORDERED: AMOX875T PO (23:05)
[2024-08-31] MEDS: AMOXICILLIN 500 MG CAP PO ONE (23:15)
[2024-08-31 23:29] VITALS: BP 97/66; O2SAT 100
== END 2024-08-31 23:31 | disposition home or self-care (01) ==
LOC: M ED 15:57
DX: J02.9 Acute pharyngitis, unspecified (principal)

== ENCOUNTER → 2024-11-02 | Outpatient (CLI) | payer OTHER ==
[~2024-11-02] MED LIST changes: +AMOX875T PO
[2024-11-02 18:45] LABS: Trichomonas vaginalis (AMP) NOT DETECTED (NEGATIVE)
[2024-11-02 19:04] LABS: HIV 1&2 SCREEN NEGATIVE (NEGATIVE)
[2024-11-02 19:09] LABS: GC DNA AMPLIFICATION NEGATIVE (NEGATIVE)
[2024-11-02 19:12] LABS: HEPATITIS C VIRUS ABY INDEX < 0.02 INDEX (<0.8)
[2024-11-04 15:38] LABS: HPV APTIMA Not Detected (Not Detected)
== END ==
LOC: M PLALAB 16:13
PROVIDERS: ATTEND Nurse Practitioner Family
DX: Z12.4 Encounter for screening for malignant neoplasm of cervix (principal); Z11.3 Encounter for screening for infections with a predominantly sexual mode of transmission

== ENCOUNTER → 2024-11-11 | Outpatient (REF) | payer OTHER, MEDICAID ==
[2024-11-11 13:41] LABS: APPEARANCE, URINE CLEAR (CLEAR); BACTERIA, URINE AUTO NEGATIVE (NEGATIVE); BILIRUBIN, URINE AUTO NEGATIVE (NEGATIVE); BLOOD, URINE BLOOD NEGATIVE (NEGATIVE); GLUCOSE, URINE (UA) AUTO NEGATIVE (NEGATIVE); KETONE, URINE AUTO NEGATIVE (NEGATIVE); LEUKOCYTE ESTERASE, URINE AUTO NEGATIVE (NEGATIVE); MUCUS, URINE SMALL (NEGATIVE); NITRITE, URINE AUTO NEGATIVE (NEGATIVE); PROTEIN, URINE AUTO NEGATIVE (NEGATIVE); RBC, URINE AUTO 1 /HPF (0-3); SPECIFIC GRAVITY URINE AUTO 1.010 (1.002-1.035); SQUAMOUS EPITHELIAL CELL UR AU 1 /HPF (0-6); UROBILINOGEN, URINE AUTO 0.2 mg/dL (0.0-2.0); WBC, URINE AUTO 1 /HPF (0-3)
== END ==
LOC: M SFHCWAGY 12:48
PROVIDERS: ATTEND Nurse Practitioner Family
DX: R30.0 Dysuria (principal)

== ENCOUNTER 2024-12-28 15:40 | Emergency (ER) | payer OTHER ==
[~2024-12-28] VITALS: Ht 160 cm; Wt 71.6 kg
[~2024-12-28 15:40] MED LIST changes: -IBUP-1022 PO; +IBUP600T42 PO
[2024-12-28] MEDS ORDERED: AMOX875T2 PO (17:54)
[2024-12-28] MEDS: AUGMENTIN 875 MG TAB PO ONE (17:58)
[2024-12-28] MEDS: ACETAMINOPHEN 500 MG TAB PO ONE (17:58)
[2024-12-28 18:03] VITALS: BP 121/76; TEMP 97.7; O2SAT 98
== END 2024-12-28 18:10 | disposition home or self-care (01) ==
LOC: M ED 15:40
DX: K04.7 Periapical abscess without sinus (principal); K03.81 Cracked tooth; Z79.2 Long term (current) use of antibiotics; Z79.899 Other long term (current) drug therapy

== ENCOUNTER → 2025-03-09 | Outpatient (CLI) | payer OTHER ==
[~2025-03-09] MED LIST changes: +AMOX875T2 PO; +SULF-7 PO; -SULF1TAB23 PO
== END ==
LOC: M WHC 08:12
PROVIDERS: ATTEND Nurse Practitioner Family
DX: N64.4 Mastodynia (principal)